=== PATIENT | male | born 1940 | race Hispanic/Latino ===

== ENCOUNTER → 2018-01-12 | Outpatient (CLI) | payer OTHER ==
[~2018-01-12] MED LIST: AMLO5TAB2 PO; ATOR10TA69 PO; CLIN150C10 PO; GLIP5TAB11 PO; IBUP-2076 PO; ISOVUE-370 50ML VIAL IV ONE; LEVO500T2 PO; LISI-613 PO; METF850T2 PO; METO5 PO; NITR0.4T50 SL; PANT40TA25 PO; TAMS0.4C32 PO; TYL3 PO
== END | disposition home or self-care (01) ==
LOC: OIH 07:47
PROVIDERS: ATTEND Internal Medicine Gastroenterology
DX: K83.8 Other specified diseases of biliary tract (principal); D50.9 Iron deficiency anemia, unspecified; Z85.038 Personal history of other malignant neoplasm of large intestine
CPT/HCPCS: 74178; Q9967

== ENCOUNTER 2018-01-19 07:49 | Inpatient (IN) | payer OTHER ==
[~2018-01-19] VITALS: Ht 172.7 cm; Wt 61.7 kg
[~2018-01-19 07:49] MED LIST changes: -ISOVUE-370 50ML VIAL IV ONE; -METO5 PO; -PANT40TA25 PO; -TYL3 PO
[2018-01-19 08:40] LABS: CREATININE 1.2 mg/dL (0.5-1.5); POTASSIUM 3.9 mmol/L (3.5-5.1)
[2018-01-19 08:48] LABS: INR 2.75 (0.85-1.15); PROTHROMBIN TIME 28.3 SEC (9.6-11.6)
[2018-01-19 08:52] LABS: ALBUMIN 1.8 g/dL (3.5-5.0); TOTAL PROTEIN, SERUM 7.2 g/dL (6.0-8.3)
[2018-01-19 08:55] LABS: MEAN CORPUSCULAR HEMOGLOBIN 31.6 pg (27.0-33.0); PLATELET COUNT (AUTO) 279 K/uL (130-400); RED BLOOD CELL COUNT(AUTO) 2.91 MIL/uL (4.50-6.20); RED CELL DISTRIBUTION WIDTH 16.2 % (11.0-15.5)
[2018-01-19 08:58] LABS: BILIRUBIN,TOTAL 20.7 mg/dL (0.2-1.0)
[2018-01-19 09:04] VITALS: BP 104/39
[2018-01-19] MEDS ORDERED: SODIUM CHLORIDE 0.9% 1000ML 1,000 ML IV ONE (09:24)
[2018-01-19 09:26] LABS: BASOPHILS % (MANUAL) 1 % (0-2); EOSINOPHILS % (MANUAL) 1 % (1-6); LYMPHOCYTES % (MANUAL) 12 % (22-44); MAN.DIFF COMMENT-IMPRESSION MANUAL DIFFERENTIAL; MONOCYTES % (MANUAL) 3 % (2-9); PLATELET MORPHOLOGY COMMENT ADEQUATE; SEGMENTED NEUTROPHILS % 83 % (40-70)
[2018-01-19] MEDS ORDERED: ACETAMINOPHEN 325 MG TAB PO PRN ×2 (11:00)
[2018-01-19] MEDS: PHYTONADIONE 10 MG/1 ML AMP SQ SCH (11:00)
[2018-01-19] MEDS ORDERED: NITROGLYCERIN 0.4 MG SL TAB SL PRN (11:00)
[2018-01-19] MEDS ORDERED: GUAIFENESIN-DM 200/20 MG 10 ML PO PRN (11:00)
[2018-01-19] MEDS ORDERED: HYDRALAZINE HCL 20 MG/ML VIAL IV PRN (11:00)
[2018-01-19] MEDS ORDERED: LACTULOSE 20 GM/30 ML UDCUP PO PRN (11:00)
[2018-01-19] MEDS ORDERED: ACETAMINOPHEN-CODEINE 300/30MG TAB PO PRN ×2 (11:00)
[2018-01-19 11:10] VITALS: BP 118/59
[2018-01-19] MEDS ORDERED: POTASSIUM CHLORIDE 10% ELIXIR 20 MEQ/15 ML UDCUP PO PRN (14:15)
[2018-01-19] MEDS ORDERED: LIDOCAINE HCL-MPF 1% 2ML VIAL IVP PRN (14:15)
[2018-01-19] MEDS ORDERED: POTASSIUM CHLORIDE 20MEQ/100ML 100 ML IV PRN (14:15)
[2018-01-19] MEDS ORDERED: POTASSIUM CHLORIDE 20 MEQ ERTAB PO PRN (14:15)
[2018-01-19 16:00] VITALS: BP 118/49
[2018-01-19] MEDS: INSULIN HUMULIN R 100 UNIT/ML 3ML SQ SCH ×2 (17:51→20:30)
[2018-01-19 19:59] VITALS: BP 129/56
[2018-01-19] MEDS: GLIPIZIDE 5 MG TABLET PO SCH (20:29)
[2018-01-19] MEDS: FAMOTIDINE/PF 20 MG/2 ML VIAL IV SCH (20:30)
[2018-01-19] MEDS: TAMSULOSIN HCL 0.4 MG CAP.ER.24H PO SCH (20:30)
[2018-01-20] VITALS (25 sets, daily range): BP systolic 86–152; BP diastolic 42–86
[2018-01-20 03:56] LABS: BILIRUBIN,URINE Large (NEGATIVE); COLOR,URINE Dark Yellow (YELLOW); GLUCOSE, URINE (UA) Negative (NEGATIVE); KETONES,URINE Negative (NEGATIVE); LEUKOCYTE ESTERASE ,URINE Trace (NEGATIVE); NITRATE,URINE Negative (NEGATIVE); OCCULT BLOOD,URINE Negative (NEGATIVE); PH,URINE 5.5 (5.0-8.0); PROTEIN,URINE POS 1+ (NEGATIVE)
[2018-01-20 04:04] LABS: APPEARANCE,URINE SLIGHTLY CLOUDY (CLEAR)
[2018-01-20 04:19] LABS: RBC,URINE None Seen /HPF (0-1)
[2018-01-20 04:20] LABS: BACTERIA,URINE Many /HPF (None Seen); SQUAMOUS EPITHELIAL CELL,UR Rare /LPF (0-2); WBC,URINE 0-1 /HPF (0-1)
[2018-01-20 04:48] LABS: HEMATOCRIT 22.2 % (42-54); MEAN CORPUSCULAR HEMOGLOBIN 32.7 pg (27.0-33.0); MEAN CORPUSCULAR HGB CONC 35.9 g/dL (32.0-36.0); MEAN CORPUSCULAR VOLUME 91.1 fL (79-99); PLATELET COUNT (AUTO) 243 K/uL (130-400); RED BLOOD CELL COUNT(AUTO) 2.43 MIL/uL (4.50-6.20); RED CELL DISTRIBUTION WIDTH 15.8 % (11.0-15.5); WHITE BLOOD COUNT (AUTO) 9.9 K/uL (4.8-10.8)
[2018-01-20 05:21] LABS: INR 1.11 (0.85-1.15); PARTIAL THROMBOPLASTIN TIME 36.2 SEC (26.3-35.5); PROTHROMBIN TIME 11.6 SEC (9.6-11.6)
[2018-01-20 06:28] LABS: ALBUMIN 1.6 g/dL (3.5-5.0); CREATININE 1.3 mg/dL (0.5-1.5); TOTAL PROTEIN, SERUM 6.3 g/dL (6.0-8.3)
[2018-01-20 06:30] LABS: BILIRUBIN,TOTAL 19.2 mg/dL (0.2-1.0)
[2018-01-20] MEDS: INSULIN HUMULIN R 100 UNIT/ML 3ML SQ SCH ×4 (06:52→21:00)
[2018-01-20] MEDS: AMLODIPINE BESYLATE 5 MG TAB PO SCH (09:00)
[2018-01-20] MEDS: LISINOPRIL 20 MG TABLET PO SCH (09:00)
[2018-01-20] MEDS: FAMOTIDINE/PF 20 MG/2 ML VIAL IV SCH ×2 (09:00→21:24)
[2018-01-20] MEDS: GLIPIZIDE 5 MG TABLET PO SCH ×2 (09:00→21:00)
[2018-01-20] MEDS: LEVOFLOXACIN 500 MG TABLET PO SCH (10:00)
[2018-01-20] MEDS: PHYTONADIONE 10 MG/1 ML AMP SQ SCH (10:00)
[2018-01-20] MEDS ORDERED: LIDOCAINE HCL 1% 20 ML VIAL ONE (12:10)
[2018-01-20] MEDS ORDERED: SUCCINYLCHOLINE CHLORIDE 20 MG/ML 10 ML VIAL ONE (12:10)
[2018-01-20] MEDS ORDERED: PROPOFOL 10 MG/ML 20ML VIAL IV ONE (12:10)
[2018-01-20] MEDS ORDERED: GLYCOPYRROLATE 0.2 MG/ML 5 ML VIAL ONE (12:24)
[2018-01-20] MEDS ORDERED: LEVOFLOXACIN 500 MG/D5W 100 ML 100 ML IV SCH (13:00)
[2018-01-20] MEDS: TAMSULOSIN HCL 0.4 MG CAP.ER.24H PO SCH (21:24)
[2018-01-21] VITALS (21 sets, daily range): BP systolic 84–151; BP diastolic 44–74
[2018-01-21] MEDS: INSULIN HUMULIN R 100 UNIT/ML 3ML SQ SCH ×4 (07:10→21:00)
[2018-01-21] MEDS: GLIPIZIDE 5 MG TABLET PO SCH ×2 (09:00→20:28)
[2018-01-21] MEDS: LISINOPRIL 20 MG TABLET PO SCH (09:00)
[2018-01-21] MEDS: LEVOFLOXACIN 500 MG TABLET PO SCH (09:00)
[2018-01-21] MEDS: AMLODIPINE BESYLATE 5 MG TAB PO SCH (09:00)
[2018-01-21] MEDS: PHYTONADIONE 10 MG/1 ML AMP SQ SCH (10:00)
[2018-01-21] MEDS: FAMOTIDINE/PF 20 MG/2 ML VIAL IV SCH ×2 (11:08→20:28)
[2018-01-21] MEDS ORDERED: ISOVUE-370 50ML VIAL IV ONE (12:30)
[2018-01-21] MEDS ORDERED: GLUCAGON 1MG KIT 1 MG ML ONE (12:51)
[2018-01-21] MEDS ORDERED: LACTULOSE 20 GM/30 ML UDCUP PO PRN (13:00)
[2018-01-21] MEDS ORDERED: EPHEDRINE SULFATE 50 MG/ML AMPULE ONE (13:02)
[2018-01-21] MEDS ORDERED: ALBUMIN (HUMAN) 25% 50 ML IV ONE (13:09)
[2018-01-21] MEDS ORDERED: SIMETHICONE 40 MG/0.6 ML ML ONE (13:16)
[2018-01-21] MEDS ORDERED: PHENYLEPHRINE HCL 10 MG/ML 1ML VIAL IV ONE (13:20)
[2018-01-21] MEDS ORDERED: ISOVUE-300 100 ML VIAL IV ONE (16:32)
[2018-01-21] MEDS ORDERED: LIDOCAINE HCL 1% 20 ML VIAL ONE (16:32)
[2018-01-21] MEDS ORDERED: MIDAZOLAM HCL 1 MG/ML 2ML VIAL ONE (16:41)
[2018-01-21] MEDS: TRAMADOL HCL 50 MG TABLET PO PRN (17:52)
[2018-01-21] MEDS: TAMSULOSIN HCL 0.4 MG CAP.ER.24H PO SCH (20:28)
[2018-01-21] MEDS: MORPHINE SULFATE 2 MG/ML 1ML SYG IV PRN (23:49)
[2018-01-22] VITALS: BP 120/58
[2018-01-22 04:00] VITALS: BP 105/56
[2018-01-22 05:43] LABS: ALBUMIN 1.6 g/dL (3.5-5.0); BASOPHILS % (AUTO) 0.8 % (0.0-5.0); CREATININE 1.2 mg/dL (0.5-1.5); HEMATOCRIT 22.5 % (42-54); LYMPHOCYTES % (AUTO) 31.8 % (21.0-51.0); MEAN CORPUSCULAR HGB CONC 32.9 g/dL (32.0-36.0); MEAN CORPUSCULAR VOLUME 94.1 fL (79-99); MONOCYTES % (AUTO) 2.5 % (3.0-13.0); NEUTROPHILS % (AUTO) 64.9 % (40.0-77.0); PLATELET COUNT (AUTO) 244 K/uL (130-400); POTASSIUM 3.8 mmol/L (3.5-5.1); RED BLOOD CELL COUNT(AUTO) 2.39 MIL/uL (4.50-6.20); RED CELL DISTRIBUTION WIDTH 15.9 % (11.0-15.5); WHITE BLOOD COUNT (AUTO) 23.1 K/uL (4.8-10.8)
[2018-01-22 06:03] LABS: TOTAL PROTEIN, SERUM 5.9 g/dL (6.0-8.3)
[2018-01-22 06:10] LABS: BILIRUBIN,TOTAL 19.3 mg/dL (0.2-1.0)
[2018-01-22] MEDS: INSULIN HUMULIN R 100 UNIT/ML 3ML SQ SCH ×4 (06:38→20:55)
[2018-01-22 07:45] VITALS: BP 108/52
[2018-01-22] MEDS: TRAMADOL HCL 50 MG TABLET PO PRN (09:19)
[2018-01-22] MEDS: LEVOFLOXACIN 500 MG TABLET PO SCH (09:19)
[2018-01-22] MEDS: GLIPIZIDE 5 MG TABLET PO SCH ×2 (09:20→20:55)
[2018-01-22] MEDS: AMLODIPINE BESYLATE 5 MG TAB PO SCH (09:20)
[2018-01-22] MEDS: LISINOPRIL 20 MG TABLET PO SCH (09:20)
[2018-01-22] MEDS: FAMOTIDINE/PF 20 MG/2 ML VIAL IV SCH ×2 (09:20→20:52)
[2018-01-22] MEDS: HYDROXYZINE HCL 25 MG TABLET PO PRN ×2 (09:20→18:49)
[2018-01-22] MEDS: PHYTONADIONE 10 MG/1 ML AMP SQ SCH (10:00)
[2018-01-22] MEDS ORDERED: LEVO500T2 PO (10:49)
[2018-01-22 12:00] VITALS: BP_SYST 114; BP_SYST 122; BP_DIAS 53; BP_DIAS 55
[2018-01-22 13:54] LABS: MEAN CORPUSCULAR HEMOGLOBIN 32.9 pg (27.0-33.0); MEAN CORPUSCULAR HGB CONC 34.5 g/dL (32.0-36.0); MEAN CORPUSCULAR VOLUME 95.6 fL (79-99); PLATELET COUNT (AUTO) 230 K/uL (130-400); RED BLOOD CELL COUNT(AUTO) 2.07 MIL/uL (4.50-6.20); RED CELL DISTRIBUTION WIDTH 15.9 % (11.0-15.5); WHITE BLOOD COUNT (AUTO) 20.9 K/uL (4.8-10.8)
[2018-01-22 14:21] LABS: HEMATOCRIT 19.8 % (42-54)
[2018-01-22 14:25] LABS: BAND NEUTROPHILS % (MANUAL) 2 % (0-2); LYMPHOCYTES % (MANUAL) 3 % (22-44); MONOCYTES % (MANUAL) 1 % (2-9); SEGMENTED NEUTROPHILS % 94 % (40-70)
[2018-01-22 14:27] LABS: PLATELET MORPHOLOGY COMMENT ADEQUATE
[2018-01-22] MEDS: MORPHINE SULFATE 4 MG/1ML SYG IV PRN (18:49)
[2018-01-22 20:00] VITALS: BP 115/52
[2018-01-22] MEDS: TAMSULOSIN HCL 0.4 MG CAP.ER.24H PO SCH (20:51)
[2018-01-22] MEDS ORDERED: MORPHINE SULFATE 15 MG TABLET.SA PO SCH (23:30)
[2018-01-23] VITALS: BP 122/66
[2018-01-23] MEDS: MORPHINE SULFATE 4 MG/1ML SYG IV PRN (00:31)
[2018-01-23 04:00] VITALS: BP 122/61
[2018-01-23 05:30] LABS: CREATININE 1.2 mg/dL (0.5-1.5); POTASSIUM 3.8 mmol/L (3.5-5.1)
[2018-01-23 05:34] LABS: HEMATOCRIT 29.5 % (42-54); MEAN CORPUSCULAR HEMOGLOBIN 31.2 pg (27.0-33.0); MEAN CORPUSCULAR VOLUME 89.3 fL (79-99); PLATELET COUNT (AUTO) 222 K/uL (130-400); RED CELL DISTRIBUTION WIDTH 17.7 % (11.0-15.5); WHITE BLOOD COUNT (AUTO) 16.2 K/uL (4.8-10.8)
[2018-01-23] MEDS: MORPHINE SULFATE 2 MG/ML 1ML SYG IV PRN ×2 (06:31→16:35)
[2018-01-23] MEDS: INSULIN HUMULIN R 100 UNIT/ML 3ML SQ SCH ×4 (07:30→20:53)
[2018-01-23 08:00] VITALS: BP 101/54
[2018-01-23] MEDS: PHYTONADIONE 10 MG/1 ML AMP SQ SCH (08:01)
[2018-01-23] MEDS: GLIPIZIDE 5 MG TABLET PO SCH ×2 (09:00→20:52)
[2018-01-23] MEDS: LISINOPRIL 20 MG TABLET PO SCH (09:00)
[2018-01-23] MEDS: AMLODIPINE BESYLATE 5 MG TAB PO SCH (09:00)
[2018-01-23] MEDS: FAMOTIDINE/PF 20 MG/2 ML VIAL IV SCH ×2 (11:20→20:52)
[2018-01-23 12:00] VITALS: BP 103/56
[2018-01-23 12:38] VITALS: BP 116/60
[2018-01-23] MEDS: LEVOFLOXACIN 500 MG TABLET PO SCH (16:34)
[2018-01-23 20:00] VITALS: BP 104/58
[2018-01-23] MEDS ORDERED: PHARMACY COMMUNICATION MISC SCH (20:45)
[2018-01-23] MEDS ORDERED: GLUCAGON 1MG KIT 1 MG ML IM PRN (20:45)
[2018-01-23] MEDS ORDERED: DEXTROSE 50%-WATER 50 ML DISP.SYRIN IV PRN (20:45)
[2018-01-23] MEDS ORDERED: DEXTROSE 5 %-0.45 % NACL 1,000 ML IV SCH (20:45)
[2018-01-23] MEDS: TAMSULOSIN HCL 0.4 MG CAP.ER.24H PO SCH (20:52)
[2018-01-24] VITALS: BP 111/57
[2018-01-24 04:00] VITALS: BP 113/63
[2018-01-24] MEDS: INSULIN HUMULIN R 100 UNIT/ML 3ML SQ SCH ×4 (06:49→21:00)
[2018-01-24] MEDS: MORPHINE SULFATE 2 MG/ML 1ML SYG IV PRN ×2 (07:43→13:24)
[2018-01-24 08:00] VITALS: BP 121/62
[2018-01-24] MEDS: AMLODIPINE BESYLATE 5 MG TAB PO SCH (09:00)
[2018-01-24] MEDS: GLIPIZIDE 5 MG TABLET PO SCH ×2 (09:00→21:00)
[2018-01-24] MEDS: LISINOPRIL 20 MG TABLET PO SCH (09:00)
[2018-01-24] MEDS: FAMOTIDINE/PF 20 MG/2 ML VIAL IV SCH ×2 (09:14→21:54)
[2018-01-24 12:00] VITALS: BP 114/58
[2018-01-24] MEDS: LEVOFLOXACIN 500 MG/D5W 100 ML 100 ML IV SCH (15:30)
[2018-01-24] MEDS: SODIUM CHLORIDE 0.9% 1000ML 1,000 ML IV SCH (15:30)
[2018-01-24 16:00] VITALS: BP 108/69
[2018-01-24 19:00] VITALS: BP 140/74
[2018-01-24] MEDS: TAMSULOSIN HCL 0.4 MG CAP.ER.24H PO SCH (21:54)
[2018-01-25] VITALS (20 sets, daily range): BP systolic 95–136; BP diastolic 57–75
[2018-01-25] MEDS: MORPHINE SULFATE 2 MG/ML 1ML SYG IV PRN (04:30)
[2018-01-25] MEDS ORDERED: ONDANSETRON HCL MDV 20ML 2 MG/ML VIAL ONE ×4 (04:39→22:54)
[2018-01-25] MEDS: ONDANSETRON HCL 4 MG/2 ML VIAL IV PRN ×3 (04:47→23:05)
[2018-01-25 05:49] LABS: MEAN CORPUSCULAR HGB CONC 34.6 g/dL (32.0-36.0); MEAN CORPUSCULAR VOLUME 89.5 fL (79-99); PLATELET COUNT (AUTO) 208 K/uL (130-400); RED BLOOD CELL COUNT(AUTO) 3.13 MIL/uL (4.50-6.20); RED CELL DISTRIBUTION WIDTH 17.4 % (11.0-15.5); WHITE BLOOD COUNT (AUTO) 17.3 K/uL (4.8-10.8)
[2018-01-25 05:57] LABS: CREATININE 1.4 mg/dL (0.5-1.5); POTASSIUM 3.6 mmol/L (3.5-5.1)
[2018-01-25] MEDS: INSULIN HUMULIN R 100 UNIT/ML 3ML SQ SCH ×4 (06:29→21:00)
[2018-01-25] MEDS: LISINOPRIL 20 MG TABLET PO SCH (09:00)
[2018-01-25] MEDS: GLIPIZIDE 5 MG TABLET PO SCH ×2 (09:00→21:00)
[2018-01-25] MEDS: AMLODIPINE BESYLATE 5 MG TAB PO SCH (09:00)
[2018-01-25] MEDS: FAMOTIDINE/PF 20 MG/2 ML VIAL IV SCH ×2 (09:34→22:16)
[2018-01-25] MEDS: SODIUM CHLORIDE 0.9% 1000ML 1,000 ML IV SCH (10:15)
[2018-01-25] MEDS: MORPHINE SULFATE 4 MG/1ML SYG IV PRN (12:37)
[2018-01-25] MEDS: LEVOFLOXACIN 500 MG/D5W 100 ML 100 ML IV SCH (12:42)
[2018-01-25] MEDS ORDERED: ISOVUE-370 50ML VIAL IV ONE (17:39)
[2018-01-25] MEDS ORDERED: KETAMINE HCL 100 MG/ML 5ML VIAL IJ ONE (18:18)
[2018-01-25] MEDS ORDERED: PROPOFOL 10 MG/ML 20ML VIAL IV ONE (18:30)
[2018-01-25] MEDS: TAMSULOSIN HCL 0.4 MG CAP.ER.24H PO SCH (21:00)
[2018-01-25] MEDS ORDERED: ONDANSETRON HCL 4 MG/2 ML VIAL IV PRN (23:15)
[2018-01-26] VITALS (14 sets, daily range): BP systolic 98–121; BP diastolic 50–65
[2018-01-26] MEDS ORDERED: PHARMACY COMMUNICATION MISC SCH (04:30)
[2018-01-26 05:38] LABS: HEMATOCRIT 24.2 % (42-54); MEAN CORPUSCULAR HEMOGLOBIN 32.4 pg (27.0-33.0); MEAN CORPUSCULAR HGB CONC 35.7 g/dL (32.0-36.0); MEAN CORPUSCULAR VOLUME 90.9 fL (79-99); PLATELET COUNT (AUTO) 184 K/uL (130-400); RED BLOOD CELL COUNT(AUTO) 2.66 MIL/uL (4.50-6.20); RED CELL DISTRIBUTION WIDTH 17.8 % (11.0-15.5); WHITE BLOOD COUNT (AUTO) 14.6 K/uL (4.8-10.8)
[2018-01-26] MEDS: INSULIN HUMULIN R 100 UNIT/ML 3ML SQ SCH ×4 (05:46→21:00)
[2018-01-26 06:02] LABS: CREATININE 1.6 mg/dL (0.5-1.5); POTASSIUM 3.5 mmol/L (3.5-5.1)
[2018-01-26] MEDS: SODIUM CHLORIDE 0.9% 1000ML 1,000 ML IV SCH ×2 (06:04→08:54)
[2018-01-26] MEDS ORDERED: ONDANSETRON HCL MDV 20ML 2 MG/ML VIAL ONE (08:40)
[2018-01-26] MEDS: FAMOTIDINE/PF 20 MG/2 ML VIAL IV SCH ×2 (08:47→21:31)
[2018-01-26] MEDS: MORPHINE SULFATE 2 MG/ML 1ML SYG IV PRN (08:49)
[2018-01-26] MEDS: GLIPIZIDE 5 MG TABLET PO SCH ×2 (08:58→21:00)
[2018-01-26] MEDS: LISINOPRIL 20 MG TABLET PO SCH (08:58)
[2018-01-26] MEDS: AMLODIPINE BESYLATE 5 MG TAB PO SCH (08:58)
[2018-01-26] MEDS ORDERED: ONDANSETRON HCL MDV 20ML 2 MG/ML VIAL IVP PRN (09:00)
[2018-01-26] MEDS ORDERED: IOPAMIDOL-370 75 ML VIAL IV ONE (12:30)
[2018-01-26] MEDS ORDERED: ISOVUE-300 100 ML VIAL IV ONE (13:47)
[2018-01-26] MEDS ORDERED: LIDOCAINE HCL 1% MDV 50ML VIAL ONE (13:48)
[2018-01-26] MEDS ORDERED: KETAMINE HCL 100 MG/ML 5ML VIAL IJ ONE (14:05)
[2018-01-26] MEDS ORDERED: PROPOFOL 10 MG/ML 20ML VIAL IV ONE (14:05)
[2018-01-26] MEDS ORDERED: MIDAZOLAM HCL 1 MG/ML 2ML VIAL ONE (14:05)
[2018-01-26] MEDS: LEVOFLOXACIN 500 MG/D5W 100 ML 100 ML IV SCH (16:29)
[2018-01-26] MEDS: TRAMADOL HCL 50 MG TABLET PO PRN (16:36)
[2018-01-26] MEDS: TAMSULOSIN HCL 0.4 MG CAP.ER.24H PO SCH (21:31)
[2018-01-27] MEDS: TRAMADOL HCL 50 MG TABLET PO PRN ×2 (02:08→09:29)
[2018-01-27 03:30] VITALS: BP 100/63
[2018-01-27] MEDS: INSULIN HUMULIN R 100 UNIT/ML 3ML SQ SCH ×4 (07:30→21:00)
[2018-01-27 08:00] VITALS: BP 98/54
[2018-01-27] MEDS: GLIPIZIDE 5 MG TABLET PO SCH ×2 (09:00→21:00)
[2018-01-27] MEDS: LISINOPRIL 20 MG TABLET PO SCH (09:00)
[2018-01-27] MEDS: AMLODIPINE BESYLATE 5 MG TAB PO SCH (09:00)
[2018-01-27] MEDS: FAMOTIDINE/PF 20 MG/2 ML VIAL IV SCH ×2 (09:28→21:42)
[2018-01-27 12:00] VITALS: BP 116/51
[2018-01-27 16:00] VITALS: BP 92/49
[2018-01-27] MEDS: LEVOFLOXACIN 500 MG/D5W 100 ML 100 ML IV SCH (16:47)
[2018-01-27 20:00] VITALS: BP 96/51
[2018-01-27] MEDS: TAMSULOSIN HCL 0.4 MG CAP.ER.24H PO SCH (21:42)
[2018-01-27] MEDS: SODIUM CHLORIDE 0.9% 1000ML 1,000 ML IV SCH (22:51)
[2018-01-27 23:10] VITALS: BP 108/56
[2018-01-28 03:20] VITALS: BP 100/51
[2018-01-28] MEDS: INSULIN HUMULIN R 100 UNIT/ML 3ML SQ SCH ×4 (06:54→21:00)
[2018-01-28 07:00] VITALS: BP 111/43
[2018-01-28] MEDS: LISINOPRIL 20 MG TABLET PO SCH ×2 (09:00→09:07)
[2018-01-28] MEDS: AMLODIPINE BESYLATE 5 MG TAB PO SCH (09:00)
[2018-01-28] MEDS: GLIPIZIDE 5 MG TABLET PO SCH ×2 (09:07→21:00)
[2018-01-28] MEDS: FAMOTIDINE/PF 20 MG/2 ML VIAL IV SCH ×2 (09:07→20:44)
[2018-01-28] MEDS: TRAMADOL HCL 50 MG TABLET PO PRN (10:57)
[2018-01-28 11:00] VITALS: BP 86/52
[2018-01-28] MEDS: LEVOFLOXACIN 500 MG/D5W 100 ML 100 ML IV SCH (13:12)
[2018-01-28] MEDS: MAG HYDROX/AL HYDROX/SIMETH ES 30 ML SUSP UDCUP PO PRN (13:12)
[2018-01-28] MEDS: SODIUM CHLORIDE 0.9% 1000ML 1,000 ML IV SCH ×2 (14:56→20:30)
[2018-01-28 16:00] VITALS: BP 106/52
[2018-01-28 19:30] VITALS: BP 94/49
[2018-01-28] MEDS ORDERED: SODIUM CHLORIDE 0.9% 1000ML 1,000 ML IV ONE (20:31)
[2018-01-28] MEDS: TAMSULOSIN HCL 0.4 MG CAP.ER.24H PO SCH (21:00)
[2018-01-29 00:12] VITALS: BP 101/53
[2018-01-29 03:50] VITALS: BP 95/46
[2018-01-29] MEDS: INSULIN HUMULIN R 100 UNIT/ML 3ML SQ SCH ×4 (06:15→20:56)
[2018-01-29 07:00] VITALS: BP 102/53
[2018-01-29] MEDS: FAMOTIDINE/PF 20 MG/2 ML VIAL IV SCH ×2 (08:33→20:44)
[2018-01-29] MEDS: GLIPIZIDE 5 MG TABLET PO SCH ×2 (08:33→20:44)
[2018-01-29] MEDS: LISINOPRIL 20 MG TABLET PO SCH (08:34)
[2018-01-29] MEDS: AMLODIPINE BESYLATE 5 MG TAB PO SCH (08:34)
[2018-01-29 11:00] VITALS: BP 110/41
[2018-01-29] MEDS: LEVOFLOXACIN 500 MG/D5W 100 ML 100 ML IV SCH (14:01)
[2018-01-29] MEDS: SODIUM CHLORIDE 0.9% 1000ML 1,000 ML IV SCH (15:34)
[2018-01-29 16:00] VITALS: BP 101/45
[2018-01-29 19:00] VITALS: BP 101/51
[2018-01-29] MEDS: TAMSULOSIN HCL 0.4 MG CAP.ER.24H PO SCH (20:44)
[2018-01-29] MEDS: TRAMADOL HCL 50 MG TABLET PO PRN (20:56)
[2018-01-30] VITALS: BP 108/61
[2018-01-30 04:00] VITALS: BP 106/52
[2018-01-30] MEDS: MAG HYDROX/AL HYDROX/SIMETH ES 30 ML SUSP UDCUP PO PRN (05:17)
[2018-01-30] MEDS: INSULIN HUMULIN R 100 UNIT/ML 3ML SQ SCH ×3 (06:59→16:52)
[2018-01-30 07:00] VITALS: BP 112/53
[2018-01-30] MEDS: AMLODIPINE BESYLATE 5 MG TAB PO SCH (09:11)
[2018-01-30] MEDS: LISINOPRIL 20 MG TABLET PO SCH (09:11)
[2018-01-30] MEDS: GLIPIZIDE 5 MG TABLET PO SCH (09:11)
[2018-01-30] MEDS: FAMOTIDINE/PF 20 MG/2 ML VIAL IV SCH (10:07)
[2018-01-30] MEDS: TRAMADOL HCL 50 MG TABLET PO PRN (10:09)
[2018-01-30 11:00] VITALS: BP 105/46
[2018-01-30] MEDS: SODIUM CHLORIDE 0.9% 1000ML 1,000 ML IV SCH (11:58)
[2018-01-30] MEDS: LEVOFLOXACIN 500 MG/D5W 100 ML 100 ML IV SCH (13:32)
[2018-01-30 16:00] VITALS: BP 102/48
== END 2018-01-30 17:30 | DRG 438 ==
LOC: SUH 07:49 → DAH 07:49 → SUH 07:50 → DAHIP 07:50 → OBSVTOIN 07:50 → 4BH 14:42 → 4CH 01-27 21:00
PROVIDERS: ADMIT Internal Medicine; ATTEND Internal Medicine
PROC: 0F9980Z Drainage of Common Bile Duct with Drainage Device, Via Natural or Artificial Opening Endoscopic (ICD-10-PCS; principal; 2018-01-26)
PROC: BF111ZZ Fluoroscopy of Biliary and Pancreatic Ducts using Low Osmolar Contrast (ICD-10-PCS; 2018-01-26)
PROC: 0F798DZ Dilation of Common Bile Duct with Intraluminal Device, Via Natural or Artificial Opening Endoscopic (ICD-10-PCS; 2018-01-26)
PROC: 30233K1 Transfusion of Nonautologous Frozen Plasma into Peripheral Vein, Percutaneous Approach (ICD-10-PCS; 2018-01-26)
PROC: 30233N1 Transfusion of Nonautologous Red Blood Cells into Peripheral Vein, Percutaneous Approach (ICD-10-PCS; 2018-01-26)
DX: K86.89 Other specified diseases of pancreas (principal); K83.1 Obstruction of bile duct; D68.9 Coagulation defect, unspecified; E11.51 Type 2 diabetes mellitus with diabetic peripheral angiopathy without gangrene; E11.65 Type 2 diabetes mellitus with hyperglycemia; I95.81 Postprocedural hypotension; Z94.0 Kidney transplant status; L03.90 Cellulitis, unspecified; D64.9 Anemia, unspecified; E78.5 Hyperlipidemia, unspecified; I10 Essential (primary) hypertension; I25.10 Atherosclerotic heart disease of native coronary artery without angina pectoris; L29.9 Pruritus, unspecified; R62.7 Adult failure to thrive; Z79.84 Long term (current) use of oral hypoglycemic drugs; Z79.899 Other long term (current) drug therapy; Z95.1 Presence of aortocoronary bypass graft; Z93.3 Colostomy status; Z85.07 Personal history of malignant neoplasm of pancreas; Z85.048 Personal history of other malignant neoplasm of rectum, rectosigmoid junction, and anus; Z88.0 Allergy status to penicillin; Z89.432 Acquired absence of left foot; Z83.3 Family history of diabetes mellitus
CPT/HCPCS: 36415; 36430; 43232; 47532; 47534; 49083; 74018; 74177; 74330; 75989; 76700; 76705; 80048; 80053; 81001; 82150; 82378; 82948; 84132; 85025; 85027; 85610; 85730; 86850; 86900; 86901; 86922; 86927; 88108; 88173; 93005; 97039; 99152; 99153; A6250; C1729; C1769; C1894; J0330; J1610; J1815; J1956; J2250; J2270; J2370; J2704; J3430; J3480; J3490; J7030; J7042; J7070; P9016; P9017; P9047; Q9967

== ENCOUNTER 2018-02-02 16:49 | Inpatient (IN) | payer OTHER ==
[~2018-02-02] VITALS: Ht 172.7 cm; Wt 61.7 kg
[~2018-02-02 16:49] MED LIST changes: -CLIN150C10 PO
[2018-02-02] MEDS ORDERED: MEROPENEM 1 GM VIAL ONE (18:09)
[2018-02-02] MEDS ORDERED: SODIUM CHLORIDE 0.9% 1000ML 1,000 ML IV ONE ×2 (18:09→22:33)
[2018-02-02] MEDS ORDERED: SODIUM CHLORIDE 0.9% 50 ML IV ONE (18:09)
[2018-02-02 18:28] LABS: BASOPHILS % (AUTO) 0.7 % (0.0-5.0); EOSINOPHILS % (AUTO) 0.1 % (0.0-8.0); HEMATOCRIT 29.3 % (42-54); LYMPHOCYTES % (AUTO) 2.1 % (21.0-51.0); MEAN CORPUSCULAR HEMOGLOBIN 31.2 pg (27.0-33.0); MEAN CORPUSCULAR VOLUME 94.5 fL (79-99); MONOCYTES % (AUTO) 4.3 % (3.0-13.0); NEUTROPHILS % (AUTO) 92.8 % (40.0-77.0); PLATELET COUNT (AUTO) 109 K/uL (130-400); WHITE BLOOD COUNT (AUTO) 16.9 K/uL (4.8-10.8)
[2018-02-02 18:40] LABS: INR 1.03 (0.85-1.15); PARTIAL THROMBOPLASTIN TIME 36.6 SEC (26.3-35.5); PROTHROMBIN TIME 10.8 SEC (9.6-11.6)
[2018-02-02 18:41] LABS: CARBON DIOXIDE 17 mmol/L (21-32); CHLORIDE 103 mmol/L (101-111); CREATININE 2.3 mg/dL (0.5-1.5); GLOMERULAR FILTR. RATE CALC 30 mL/min (>60); GLUCOSE,RANDOM 205 mg/dL (70-105); POTASSIUM 3.8 mmol/L (3.5-5.1); SODIUM SERUM 135 mmol/L (136-145); UREA NITROGEN, BLOOD 60 mg/dL (7-18)
[2018-02-02 19:09] LABS: ALANINE AMINOTRANSFERASE 38 U/L (12-78); ALBUMIN 1.4 g/dL (3.5-5.0); ASPARTATE AMINOTRANSFERASE 83 U/L (10-37); BILIRUBIN,TOTAL 7.5 mg/dL (0.2-1.0); CREATINE KINASE MB 2.2 ng/mL (0.5-3.6); CREATINE KINASE, TOTAL 149 U/L (21-232); MYOGLOBIN 1157 ng/mL (10-92); TROPONIN I < 0.04 ng/mL (0.00-0.06)
[2018-02-02 20:13] LABS: APPEARANCE,URINE CLOUDY (CLEAR); BILIRUBIN,URINE MODERATE (NEGATIVE); GLUCOSE, URINE (UA) NEGATIVE (NEGATIVE); KETONES,URINE NEGATIVE (NEGATIVE); LEUKOCYTE ESTERASE ,URINE SMALL (NEGATIVE); NITRATE,URINE POSITIVE (NEGATIVE); OCCULT BLOOD,URINE TRACE-LYSED (NEGATIVE); PH,URINE 5.5 (5.0-8.0); PROTEIN,URINE TRACE (NEGATIVE); UROBILINOGEN,URINE 0.2 mg/dL (0.2-1.0)
[2018-02-02 20:14] LABS: COLOR,URINE DARK YELLOW (YELLOW)
[2018-02-02 20:22] LABS: WBC,URINE 26-50 /HPF (0-1)
[2018-02-02 20:23] LABS: BACTERIA,URINE Many /HPF (None Seen); RBC,URINE 0-1 /HPF (0-1); SQUAMOUS EPITHELIAL CELL,UR 0-2 /HPF (0-2)
[2018-02-02] MEDS ORDERED: DEXTROSE 50%-WATER 50 ML DISP.SYRIN IV PRN (23:15)
[2018-02-02] MEDS ORDERED: ONDANSETRON HCL 4 MG/2 ML VIAL IV PRN (23:15)
[2018-02-02] MEDS: SODIUM CHLORIDE 0.9% 1000ML 1,000 ML IV SCH (23:15)
[2018-02-02] MEDS ORDERED: GLUCAGON 1MG KIT 1 MG ML IM PRN (23:15)
[2018-02-02] MEDS ORDERED: VANCOMYCIN 1GM+NS 250ML 250 ML IV SCH (23:15)
[2018-02-02] MEDS ORDERED: MEROPENEM 500MG+NS 50ML 50 ML IV SCH (23:15)
[2018-02-02] MEDS: LEVOFLOXACIN 500 MG/D5W 100 ML 100 ML IV SCH (23:15)
[2018-02-02] MEDS ORDERED: ALBUMIN (HUMAN) 25% 100 ML IV ONE ×2 (23:57→23:58)
[2018-02-03] MEDS ORDERED: VANCOMYCIN PROTOCOL PER PHARMACY IV SCH (01:00)
[2018-02-03] MEDS: IPRATROPIUM/ALBUTEROL SULFATE 3 ML SOLUTION IH SCH ×5 (01:09→23:28)
[2018-02-03] MEDS ORDERED: VANCOMYCIN 1GM+NS 250ML 250 ML IV ONE (02:38)
[2018-02-03] MEDS ORDERED: SODIUM CHLORIDE 0.9% 1000ML 1,000 ML IV ONE (02:38)
[2018-02-03] MEDS ORDERED: MEROPENEM 500 MG VIAL ONE ×2 (02:38→11:13)
[2018-02-03 06:23] LABS: HEMATOCRIT 24.2 % (42-54); MEAN CORPUSCULAR HEMOGLOBIN 32.6 pg (27.0-33.0); MEAN CORPUSCULAR HGB CONC 35.1 g/dL (32.0-36.0); MEAN CORPUSCULAR VOLUME 92.8 fL (79-99); PLATELET COUNT (AUTO) 95 K/uL (130-400); RED BLOOD CELL COUNT(AUTO) 2.61 MIL/uL (4.50-6.20); RED CELL DISTRIBUTION WIDTH 17.2 % (11.0-15.5); WHITE BLOOD COUNT (AUTO) 15.3 K/uL (4.8-10.8)
[2018-02-03] MEDS ORDERED: IPRATROPIUM/ALBUTEROL SULFATE 3 ML SOLUTION IH ONE (06:25)
[2018-02-03] MEDS ORDERED: LEVOFLOXACIN 500 MG/D5W 100 ML 100 ML ONE (06:38)
[2018-02-03 06:44] LABS: ALBUMIN 1.1 g/dL (3.5-5.0); BILIRUBIN,TOTAL 5.6 mg/dL (0.2-1.0); CREATININE 1.7 mg/dL (0.5-1.5); POTASSIUM 3.2 mmol/L (3.5-5.1); TOTAL PROTEIN, SERUM 5.4 g/dL (6.0-8.3)
[2018-02-03] MEDS: INSULIN HUMULIN R 100 UNIT/ML 3ML SQ SCH ×4 (07:30→21:00)
[2018-02-03] MEDS ORDERED: ALBUMIN (HUMAN) 25% 100 ML IV ONE (08:34)
[2018-02-03] MEDS: MEROPENEM 500 MG VIAL IVP SCH ×2 (09:00→17:59)
[2018-02-03] MEDS ORDERED: SODIUM CHLORIDE 0.9% 100 ML IV ONE (11:13)
[2018-02-03 15:36] VITALS: BP 105/44
[2018-02-03 16:00] VITALS: BP 142/82
[2018-02-03] MEDS: METOCLOPRAMIDE 5 MG TABLET PO SCH (17:58)
[2018-02-03] MEDS: PANTOPRAZOLE SODIUM 40 MG TABLET.DR PO SCH (17:58)
[2018-02-03] MEDS: SODIUM CHLORIDE 0.9% 1000ML 1,000 ML IV SCH (17:59)
[2018-02-03 20:00] VITALS: BP 120/46
[2018-02-03 20:12] LABS: APPEARANCE BODY FLUID BLOODY (CLEAR); COLOR,BODY FLUID RED (LT YELLOW); SPECIMENTYPE,BODY FLUID PLEURAL; TOTAL VOLUME,BODY FLUID 1200 mL
[2018-02-03] MEDS: ALBUMIN (HUMAN) 25% 100 ML IV SCH (20:14)
[2018-02-03 20:16] LABS: BODY FLUID WBC 881 /cu. mm.
[2018-02-03 20:18] LABS: BODY FLUID RBC 37675 /cu. mm.
[2018-02-03 20:23] LABS: BF LYMPHOCYTE 12 %
[2018-02-03] MEDS: VANCOMYCIN 1GM+NS 250ML 250 ML IV SCH (22:33)
[2018-02-04] VITALS: BP 122/48
[2018-02-04] MEDS: MEROPENEM 500 MG VIAL IVP SCH ×3 (01:12→17:16)
[2018-02-04] MEDS: ALBUMIN (HUMAN) 25% 100 ML IV SCH (03:12)
[2018-02-04 04:00] VITALS: BP 115/46
[2018-02-04 04:59] LABS: HEMATOCRIT 22.6 % (42-54); MEAN CORPUSCULAR HEMOGLOBIN 31.1 pg (27.0-33.0); MEAN CORPUSCULAR VOLUME 94.1 fL (79-99); PLATELET COUNT (AUTO) 102 K/uL (130-400); RED CELL DISTRIBUTION WIDTH 17.6 % (11.0-15.5); WHITE BLOOD COUNT (AUTO) 11.6 K/uL (4.8-10.8)
[2018-02-04 05:19] LABS: ALBUMIN 2.4 g/dL (3.5-5.0); BILIRUBIN,TOTAL 5.4 mg/dL (0.2-1.0); CREATININE 1.5 mg/dL (0.5-1.5); MAGNESIUM 2.1 mg/dL (1.80-2.40); PHOSPHORUS 3.6 mg/dL (2.5-4.9); POTASSIUM 3.5 mmol/L (3.5-5.1); TOTAL PROTEIN, SERUM 5.8 g/dL (6.0-8.3)
[2018-02-04] MEDS: LEVOFLOXACIN 500 MG/D5W 100 ML 100 ML IV SCH (05:56)
[2018-02-04] MEDS: INSULIN HUMULIN R 100 UNIT/ML 3ML SQ SCH ×4 (06:37→21:00)
[2018-02-04] MEDS: IPRATROPIUM/ALBUTEROL SULFATE 3 ML SOLUTION IH SCH (06:56)
[2018-02-04 08:00] VITALS: BP 117/46
[2018-02-04] MEDS: METOCLOPRAMIDE 5 MG TABLET PO SCH ×3 (08:19→17:16)
[2018-02-04] MEDS: PANTOPRAZOLE SODIUM 40 MG TABLET.DR PO SCH (08:19)
[2018-02-04] MEDS: SODIUM CHLORIDE 0.9% 1000ML 1,000 ML IV SCH (08:25)
[2018-02-04] MEDS: TRAMADOL HCL 50 MG TABLET PO PRN (10:17)
[2018-02-04] MEDS: IPRATROPIUM/ALBUTEROL SULFATE 3 ML SOLUTION IH PRN ×2 (11:40→18:42)
[2018-02-04 12:00] VITALS: BP 114/47
[2018-02-04 16:00] VITALS: BP 113/48
[2018-02-04 20:00] VITALS: BP 112/50
[2018-02-04] MEDS: VANCOMYCIN 1GM+NS 250ML 250 ML IV SCH (22:23)
[2018-02-05] VITALS (7 sets, daily range): BP systolic 120–152; BP diastolic 54–72
[2018-02-05] MEDS: MEROPENEM 500 MG VIAL IVP SCH ×3 (01:13→17:29)
[2018-02-05 04:58] LABS: HEMATOCRIT 23.8 % (42-54); MEAN CORPUSCULAR HGB CONC 35.3 g/dL (32.0-36.0); MEAN CORPUSCULAR VOLUME 93.4 fL (79-99); NUCLEATED RED BLOOD CELLS 0.2 % (0.0-0.19); PLATELET COUNT (AUTO) 109 K/uL (130-400); RED BLOOD CELL COUNT(AUTO) 2.55 MIL/uL (4.50-6.20); WHITE BLOOD COUNT (AUTO) 10.6 K/uL (4.8-10.8)
[2018-02-05 05:17] LABS: CREATININE 1.2 mg/dL (0.5-1.5); POTASSIUM 3.1 mmol/L (3.5-5.1)
[2018-02-05] MEDS: INSULIN HUMULIN R 100 UNIT/ML 3ML SQ SCH ×4 (06:21→20:56)
[2018-02-05] MEDS: LEVOFLOXACIN 500 MG/D5W 100 ML 100 ML IV SCH (06:21)
[2018-02-05] MEDS: METOCLOPRAMIDE 5 MG TABLET PO SCH ×3 (07:30→17:29)
[2018-02-05] MEDS: PANTOPRAZOLE SODIUM 40 MG TABLET.DR PO SCH (09:56)
[2018-02-05] MEDS ORDERED: POTASSIUM CHLORIDE 10% ELIXIR 20 MEQ/15 ML UDCUP PO PRN (16:45)
[2018-02-05] MEDS ORDERED: LIDOCAINE HCL-MPF 1% 2ML VIAL IVP PRN (16:45)
[2018-02-05] MEDS ORDERED: POTASSIUM CHLORIDE 20MEQ/100ML 100 ML IV PRN (16:45)
[2018-02-05] MEDS: POTASSIUM CHLORIDE 20 MEQ ERTAB PO PRN ×2 (17:29→19:54)
[2018-02-05] MEDS: VANCOMYCIN 1GM+NS 250ML 250 ML IV SCH (20:56)
[2018-02-06] MEDS: MEROPENEM 500 MG VIAL IVP SCH ×3 (01:11→21:02)
[2018-02-06 03:59] VITALS: BP 138/75
[2018-02-06 05:59] LABS: HEMATOCRIT 24.8 % (42-54); MEAN CORPUSCULAR HEMOGLOBIN 32.1 pg (27.0-33.0); MEAN CORPUSCULAR HGB CONC 34.3 g/dL (32.0-36.0); MEAN CORPUSCULAR VOLUME 93.6 fL (79-99); PLATELET COUNT (AUTO) 113 K/uL (130-400); RED BLOOD CELL COUNT(AUTO) 2.65 MIL/uL (4.50-6.20); RED CELL DISTRIBUTION WIDTH 18.3 % (11.0-15.5); WHITE BLOOD COUNT (AUTO) 9.7 K/uL (4.8-10.8)
[2018-02-06 06:08] LABS: CREATININE 1.2 mg/dL (0.5-1.5); POTASSIUM 3.5 mmol/L (3.5-5.1)
[2018-02-06 07:31] VITALS: BP 128/59
[2018-02-06] MEDS: LEVOFLOXACIN 500 MG/D5W 100 ML 100 ML IV SCH (08:28)
[2018-02-06] MEDS: PANTOPRAZOLE SODIUM 40 MG TABLET.DR PO SCH (10:14)
[2018-02-06] MEDS: TRAMADOL HCL 50 MG TABLET PO PRN (10:15)
[2018-02-06 11:00] VITALS: BP 131/60
[2018-02-06] MEDS: METOCLOPRAMIDE 5 MG TABLET PO SCH ×2 (12:12→21:02)
[2018-02-06] MEDS: MORPHINE SULFATE 2 MG/ML 1ML SYG IVP PRN (12:13)
[2018-02-06 16:00] VITALS: BP 106/53
[2018-02-06 20:00] VITALS: BP 127/52
[2018-02-06] MEDS: INSULIN HUMULIN R 100 UNIT/ML 3ML SQ SCH (21:00)
[2018-02-06] MEDS: VANCOMYCIN 1GM+NS 250ML 250 ML IV SCH (21:02)
[2018-02-06 23:39] VITALS: BP 130/58
[2018-02-07] MEDS: MEROPENEM 500 MG VIAL IVP SCH ×4 (01:00→17:46)
[2018-02-07 04:00] VITALS: BP 126/53
[2018-02-07 04:23] LABS: ALBUMIN,BODY FLUID 0.9 g/dL
[2018-02-07] MEDS: LEVOFLOXACIN 500 MG/D5W 100 ML 100 ML IV SCH (05:44)
[2018-02-07] MEDS: METOCLOPRAMIDE 5 MG TABLET PO SCH ×4 (05:46→17:47)
[2018-02-07] MEDS: INSULIN HUMULIN R 100 UNIT/ML 3ML SQ SCH ×4 (05:50→20:38)
[2018-02-07 06:09] LABS: ALBUMIN 1.6 g/dL (3.5-5.0); BILIRUBIN,TOTAL 4.9 mg/dL (0.2-1.0); TOTAL PROTEIN, SERUM 5.2 g/dL (6.0-8.3)
[2018-02-07 06:15] LABS: APPEARANCE BODY FLUID SLIGHTLY CLOUDY (CLEAR); COLOR,BODY FLUID DARK YELLOW (LT YELLOW); SPECIMENTYPE,BODY FLUID ASCITES; TOTAL VOLUME,BODY FLUID 200 mL
[2018-02-07 06:19] LABS: BODY FLUID RBC 1425 /cu. mm.
[2018-02-07 06:21] LABS: BODY FLUID WBC 290 /cu. mm.
[2018-02-07 06:22] LABS: BF LYMPHOCYTE 91 %; BF MONOCYTE 5 %
[2018-02-07 07:00] VITALS: BP 115/53
[2018-02-07] MEDS ORDERED: HONEY 1 APPL/ML TUBE TP SCH (09:00)
[2018-02-07] MEDS: PANTOPRAZOLE SODIUM 40 MG TABLET.DR PO SCH (10:58)
[2018-02-07 11:00] VITALS: BP 120/65
[2018-02-07 15:53] VITALS: BP 109/54
[2018-02-07 19:25] VITALS: BP 127/50
[2018-02-07] MEDS: VANCOMYCIN 1GM+NS 250ML 250 ML IV SCH (20:40)
[2018-02-07] MEDS: TRAMADOL HCL 50 MG TABLET PO PRN (22:19)
[2018-02-07 23:23] VITALS: BP 121/56
[2018-02-08] MEDS: MEROPENEM 500 MG VIAL IVP SCH ×3 (00:55→17:17)
[2018-02-08 03:30] VITALS: BP 125/55
[2018-02-08] MEDS: LEVOFLOXACIN 500 MG/D5W 100 ML 100 ML IV SCH (05:59)
[2018-02-08] MEDS: METOCLOPRAMIDE 5 MG TABLET PO SCH ×3 (05:59→17:17)
[2018-02-08 06:16] LABS: HEMATOCRIT 26.6 % (42-54); MEAN CORPUSCULAR HEMOGLOBIN 31.3 pg (27.0-33.0); MEAN CORPUSCULAR HGB CONC 33.4 g/dL (32.0-36.0); MEAN CORPUSCULAR VOLUME 93.7 fL (79-99); PLATELET COUNT (AUTO) 107 K/uL (130-400); RED BLOOD CELL COUNT(AUTO) 2.84 MIL/uL (4.50-6.20); RED CELL DISTRIBUTION WIDTH 18.3 % (11.0-15.5)
[2018-02-08 06:26] LABS: CREATININE 1.5 mg/dL (0.5-1.5); POTASSIUM 3.4 mmol/L (3.5-5.1)
[2018-02-08] MEDS: INSULIN HUMULIN R 100 UNIT/ML 3ML SQ SCH ×4 (06:27→21:00)
[2018-02-08] MEDS: POTASSIUM CHLORIDE 20 MEQ ERTAB PO PRN (06:49)
[2018-02-08 07:00] VITALS: BP 115/57
[2018-02-08] MEDS: PANTOPRAZOLE SODIUM 40 MG TABLET.DR PO SCH (09:54)
[2018-02-08 11:00] VITALS: BP 125/56
[2018-02-08 16:00] VITALS: BP 105/57
[2018-02-08] MEDS: MORPHINE SULFATE 2 MG/ML 1ML SYG IVP PRN (16:24)
[2018-02-08 19:35] VITALS: BP 108/46
[2018-02-08] MEDS: VANCOMYCIN 1GM+NS 250ML 250 ML IV SCH (21:33)
[2018-02-08] MEDS: TRAMADOL HCL 50 MG TABLET PO PRN (21:33)
[2018-02-08 23:25] VITALS: BP 128/58
[2018-02-09] MEDS: MEROPENEM 500 MG VIAL IVP SCH ×3 (01:01→18:37)
[2018-02-09 03:30] VITALS: BP 113/56
[2018-02-09] MEDS: INSULIN HUMULIN R 100 UNIT/ML 3ML SQ SCH ×3 (06:08→16:30)
[2018-02-09] MEDS: METOCLOPRAMIDE 5 MG TABLET PO SCH ×3 (06:11→18:37)
[2018-02-09] MEDS: LEVOFLOXACIN 500 MG/D5W 100 ML 100 ML IV SCH (06:11)
[2018-02-09 08:00] VITALS: BP_SYST 117; BP_SYST 120; BP_DIAS 52; BP_DIAS 73
[2018-02-09] MEDS: PANTOPRAZOLE SODIUM 40 MG TABLET.DR PO SCH (09:52)
[2018-02-09 12:00] VITALS: BP 126/56
[2018-02-09] MEDS: TRAMADOL HCL 50 MG TABLET PO PRN (13:22)
[2018-02-09 16:00] VITALS: BP 116/57
== END 2018-02-09 20:10 | DRG 871 ==
LOC: EDH 16:49 → EDHIP 21:00 → 3BH 22:38 → EDHIP 22:38 → 3DH 02-03 15:03
PROVIDERS: ADMIT Internal Medicine; ATTEND Internal Medicine
PROC: BF181ZZ Fluoroscopy of Pancreatic Ducts using Low Osmolar Contrast (ICD-10-PCS; principal; 2018-02-03)
PROC: 0W993ZZ Drainage of Right Pleural Cavity, Percutaneous Approach (ICD-10-PCS; 2018-02-03)
DX: A41.9 Sepsis, unspecified organism (principal); E43 Unspecified severe protein-calorie malnutrition; N17.9 Acute kidney failure, unspecified; J90 Pleural effusion, not elsewhere classified; E11.22 Type 2 diabetes mellitus with diabetic chronic kidney disease; K83.1 Obstruction of bile duct; K31.84 Gastroparesis; E11.43 Type 2 diabetes mellitus with diabetic autonomic (poly)neuropathy; L97.429 Non-pressure chronic ulcer of left heel and midfoot with unspecified severity; E11.51 Type 2 diabetes mellitus with diabetic peripheral angiopathy without gangrene; R18.8 Other ascites; N39.0 Urinary tract infection, site not specified; J98.11 Atelectasis; M86.672 Other chronic osteomyelitis, left ankle and foot; R64 Cachexia; T81.30XA Disruption of wound, unspecified, initial encounter; T87.40 Infection of amputation stump, unspecified extremity; D64.9 Anemia, unspecified; R65.20 Severe sepsis without septic shock; B95.2 Enterococcus as the cause of diseases classified elsewhere; B96.89 Other specified bacterial agents as the cause of diseases classified elsewhere; E11.621 Type 2 diabetes mellitus with foot ulcer; E11.69 Type 2 diabetes mellitus with other specified complication; E78.5 Hyperlipidemia, unspecified; I12.9 Hypertensive chronic kidney disease with stage 1 through stage 4 chronic kidney disease, or unspecified chronic kidney disease; I25.10 Atherosclerotic heart disease of native coronary artery without angina pectoris; K74.60 Unspecified cirrhosis of liver; L60.0 Ingrowing nail; L97.529 Non-pressure chronic ulcer of other part of left foot with unspecified severity; N18.9 Chronic kidney disease, unspecified; Y83.5 Amputation of limb(s) as the cause of abnormal reaction of the patient, or of later complication, without mention of misadventure at the time of the procedure; Z68.20 Body mass index [BMI] 20.0-20.9, adult; Z74.01 Bed confinement status; Z98.61 Coronary angioplasty status; Z95.1 Presence of aortocoronary bypass graft; Z88.0 Allergy status to penicillin; Z93.3 Colostomy status; Z89.432 Acquired absence of left foot; Z85.048 Personal history of other malignant neoplasm of rectum, rectosigmoid junction, and anus; Z83.3 Family history of diabetes mellitus
CPT/HCPCS: 32555; 36415; 71045; 74177; 80048; 80053; 80076; 80202; 81001; 82042; 82247; 82550; 82553; 82945; 82948; 83605; 83615; 83735; 83874; 84100; 84157; 84484; 85025; 85027; 85610; 85730; 86316; 87040; 87071; 87088; 87106; 87186; 87205; 88108; 88305; 88341; 88342; 89051; 93005; 94640; 94664; 97039; 99291; A4218; C1894; J1956; J2185; J3370; J7030; P9046

== ENCOUNTER 2018-03-01 12:48 | Inpatient (IN) | payer OTHER ==
[~2018-03-01] VITALS: Ht 167.6 cm; Wt 62.4 kg
[2018-03-01 13:14] LABS: BILIRUBIN,URINE LARGE (NEGATIVE); GLUCOSE, URINE (UA) 250 mg/dL (NEGATIVE); KETONES,URINE 15 mg/dL (NEGATIVE); LEUKOCYTE ESTERASE ,URINE MODERATE (NEGATIVE); NITRATE,URINE POSITIVE (NEGATIVE); OCCULT BLOOD,URINE LARGE (NEGATIVE); PH,URINE 8.5 (5.0-8.0); PROTEIN,URINE >=300 (NEGATIVE)
[2018-03-01 13:16] LABS: APPEARANCE,URINE CLOUDY (CLEAR)
[2018-03-01 13:17] LABS: COLOR,URINE Red (YELLOW)
[2018-03-01 13:20] LABS: BACTERIA,URINE Moderate /HPF (None Seen); RBC,URINE TNTC /HPF (0-1); SQUAMOUS EPITHELIAL CELL,UR 0-2 /HPF (0-2); WBC,URINE 26-50 /HPF (0-1)
[2018-03-01 14:01] LABS: BASOPHILS % (AUTO) 0.1 % (0.0-5.0); CREATININE 6.2 mg/dL (0.5-1.5); HEMATOCRIT 27.5 % (42-54); LYMPHOCYTES % (AUTO) 3.7 % (21.0-51.0); MEAN CORPUSCULAR HEMOGLOBIN 29.5 pg (27.0-33.0); MEAN CORPUSCULAR HGB CONC 32.7 g/dL (32.0-36.0); MEAN CORPUSCULAR VOLUME 90.3 fL (79-99); MONOCYTES % (AUTO) 3.3 % (3.0-13.0); NEUTROPHILS % (AUTO) 92.9 % (40.0-77.0); PLATELET COUNT (AUTO) 210 K/uL (130-400); POTASSIUM 5.2 mmol/L (3.5-5.1); RED BLOOD CELL COUNT(AUTO) 3.04 MIL/uL (4.50-6.20); RED CELL DISTRIBUTION WIDTH 15.9 % (11.0-15.5); WHITE BLOOD COUNT (AUTO) 12.6 K/uL (4.8-10.8)
[2018-03-01 14:06] LABS: ALBUMIN 1.5 g/dL (3.5-5.0); BILIRUBIN,TOTAL 6.5 mg/dL (0.2-1.0)
[2018-03-01] MEDS ORDERED: CEFEPIME HCL 1 GM VIAL ONE (14:32)
[2018-03-01] MEDS ORDERED: SODIUM CHLORIDE 0.9% 1000ML 1,000 ML IV ONE ×3 (14:32→23:59)
[2018-03-01] MEDS ORDERED: SODIUM CHLORIDE 0.9% 50 ML IV ONE (14:33)
[2018-03-01 14:45] LABS: INR 1.26 (0.85-1.15); PARTIAL THROMBOPLASTIN TIME 43.9 SEC (26.3-35.5); PROTHROMBIN TIME 13.2 SEC (9.6-11.6)
[2018-03-01] MEDS ORDERED: ACETAMINOPHEN-CODEINE 300/30MG TAB ONE (15:11)
[2018-03-01] MEDS ORDERED: VANCOMYCIN 1GM+NS 250ML 250 ML IV ONE (16:00)
[2018-03-01] MEDS ORDERED: MEROPENEM 500 MG VIAL ONE (19:02)
[2018-03-01] MEDS ORDERED: SODIUM CHLORIDE 0.9% 100 ML IV ONE (19:05)
[2018-03-01] MEDS ORDERED: MORPHINE SULFATE 4 MG/1ML SYG ONE (20:38)
[2018-03-01] MEDS ORDERED: LEVOFLOXACIN 500 MG/D5W 100 ML 100 ML ONE (23:59)
[2018-03-02] VITALS (9 sets, daily range): BP systolic 92–140; BP diastolic 47–61
[2018-03-02] MEDS ORDERED: MEROPENEM 500MG+NS 50ML 50 ML IV SCH
[2018-03-02] MEDS ORDERED: DEXTROSE 50%-WATER 50 ML DISP.SYRIN IV PRN
[2018-03-02] MEDS ORDERED: GLUCAGON 1MG KIT 1 MG ML IM PRN
[2018-03-02] MEDS ORDERED: VANCOMYCIN PROTOCOL PER PHARMACY IV PRN ×2 (01:00)
[2018-03-02] MEDS: IPRATROPIUM/ALBUTEROL SULFATE 3 ML SOLUTION IH SCH ×4 (01:36→19:14)
[2018-03-02] MEDS ORDERED: MORPHINE SULFATE 4 MG/1ML SYG ONE ×2 (03:11→13:27)
[2018-03-02] MEDS ORDERED: MEROPENEM 500 MG VIAL ONE (03:45)
[2018-03-02] MEDS ORDERED: DEXTROSE 5%-WATER 500 ML IV ONE (04:03)
[2018-03-02] MEDS ORDERED: NOREPINEPHRINE BITARTRATE 1 MG/1 ML ML IV ONE (04:03)
[2018-03-02 05:36] LABS: HEMATOCRIT 22.7 % (42-54); MEAN CORPUSCULAR HEMOGLOBIN 31.8 pg (27.0-33.0); MEAN CORPUSCULAR HGB CONC 35.2 g/dL (32.0-36.0); MEAN CORPUSCULAR VOLUME 90.4 fL (79-99); NUCLEATED RED BLOOD CELLS 0.2 % (0.0-0.19); PLATELET COUNT (AUTO) 154 K/uL (130-400); RED BLOOD CELL COUNT(AUTO) 2.51 MIL/uL (4.50-6.20)
[2018-03-02 05:50] LABS: HEMOGLOBIN A1C 4.9 % (4.0-6.0)
[2018-03-02 06:00] LABS: ALBUMIN 1.3 g/dL (3.5-5.0); BILIRUBIN,TOTAL 5.6 mg/dL (0.2-1.0); CREATININE 5.9 mg/dL (0.5-1.5); POTASSIUM 5.1 mmol/L (3.5-5.1); THYROID STIMULATING HORMONE 7.79 uIU/mL (0.36-3.74); TOTAL PROTEIN, SERUM 5.2 g/dL (6.0-8.3)
[2018-03-02] MEDS ORDERED: IPRATROPIUM/ALBUTEROL SULFATE 3 ML SOLUTION IH ONE (06:44)
[2018-03-02] MEDS: INSULIN HUMULIN R 100 UNIT/ML 3ML SQ SCH ×3 (07:30→20:51)
[2018-03-02] MEDS ORDERED: MEROPENEM 500 MG VIAL IVP SCH (08:00)
[2018-03-02] MEDS ORDERED: ENOXAPARIN SODIUM 30 MG/0.3 ML SQ ONE (08:22)
[2018-03-02] MEDS ORDERED: FAMOTIDINE/PF 20 MG/2 ML VIAL IV ONE (08:22)
[2018-03-02] MEDS: FAMOTIDINE/PF 20 MG/2 ML VIAL IV SCH ×2 (08:36→20:45)
[2018-03-02] MEDS: ENOXAPARIN SODIUM 30 MG/0.3 ML SQ SCH (08:39)
[2018-03-02] MEDS ORDERED: VANCOMYCIN 1GM+NS 250ML 250 ML IV SCH (09:30)
[2018-03-02] MEDS ORDERED: SODIUM CHLORIDE 0.9% 1000ML 1,000 ML IV SCH ×3 (10:00→20:45)
[2018-03-02] MEDS ORDERED: VANCOMYCIN 1GM+NS 250ML 250 ML IV ONE (10:25)
[2018-03-02 10:53] LABS: ABG HCO3 9.1 mmol/L (21.0-28.0); ABG OXYGEN SATURATION 97.2 % (95.0-99.0); ABG PCO2 23 mmHg (35-48)
[2018-03-02] MEDS ORDERED: SODIUM BICARB [NEONATAL] 4.2% 10ML SYG ONE (11:29)
[2018-03-02] MEDS ORDERED: SODIUM BICARB 8.4% 50ML SYRINGE IVP SCH (11:30)
[2018-03-02] MEDS ORDERED: SODIUM BICARB 50MEQ 50ML VIAL ONE (11:48)
[2018-03-02] MEDS: SODIUM BICARB 8.4% 50ML SYRING 150 MEQ in DEXTROSE 5%-WATER 1,000 ML IVP SCH ×2 (12:01→19:48)
[2018-03-02] MEDS ORDERED: ONDANSETRON HCL MDV 20ML 2 MG/ML VIAL ONE (13:27)
[2018-03-02] MEDS ORDERED: SODIUM CHLORIDE 0.9% 500ML 500 ML IV ONE ×3 (16:35→17:56)
[2018-03-02] MEDS: NOREPINEPHRINE 4MG/NS 250ML 250 ML IV SCH ×2 (19:49→23:41)
[2018-03-02] MEDS ORDERED: ACETAMINOPHEN 325 MG TAB PO PRN ×2 (20:45)
[2018-03-02] MEDS ORDERED: POTASSIUM CHLORIDE 20 MEQ ERTAB PO PRN (20:45)
[2018-03-02] MEDS ORDERED: LIDOCAINE HCL-MPF 1% 2ML VIAL IJ PRN (20:45)
[2018-03-02] MEDS ORDERED: POTASSIUM CHLORIDE 10% ELIXIR 20 MEQ/15 ML UDCUP PO PRN (20:45)
[2018-03-02] MEDS ORDERED: POTASSIUM CHLORIDE 20MEQ/100ML 100 ML IV PRN (20:45)
[2018-03-02] MEDS ORDERED: SODIUM CHLORIDE 0.9% 500ML 500 ML IV PRN (20:45)
[2018-03-02] MEDS: LEVOFLOXACIN 500 MG/D5W 100 ML 100 ML IV SCH ×2 (23:27)
[2018-03-03] VITALS (24 sets, daily range): BP systolic 84–129; BP diastolic 45–83
[2018-03-03] MEDS: IPRATROPIUM/ALBUTEROL SULFATE 3 ML SOLUTION IH SCH ×5 (00:19→23:08)
[2018-03-03] MEDS: NOREPINEPHRINE 4MG/NS 250ML 250 ML IV SCH ×4 (02:57→21:01)
[2018-03-03 03:53] LABS: HEMATOCRIT 24.4 % (42-54); MEAN CORPUSCULAR HEMOGLOBIN 29.7 pg (27.0-33.0); MEAN CORPUSCULAR HGB CONC 33.9 g/dL (32.0-36.0); MEAN CORPUSCULAR VOLUME 87.6 fL (79-99); NUCLEATED RED BLOOD CELLS 0.1 % (0.0-0.19); PLATELET COUNT (AUTO) 172 K/uL (130-400); RED BLOOD CELL COUNT(AUTO) 2.78 MIL/uL (4.50-6.20); RED CELL DISTRIBUTION WIDTH 16.1 % (11.0-15.5); WHITE BLOOD COUNT (AUTO) 13.2 K/uL (4.8-10.8)
[2018-03-03 04:01] LABS: INR 1.39 (0.85-1.15); PROTHROMBIN TIME 14.5 SEC (9.6-11.6)
[2018-03-03 04:04] LABS: ALBUMIN 1.2 g/dL (3.5-5.0); BILIRUBIN,TOTAL 5.4 mg/dL (0.2-1.0); CREATININE 5.3 mg/dL (0.5-1.5); MAGNESIUM 1.5 mg/dL (1.80-2.40); PHOSPHORUS 4.5 mg/dL (2.5-4.9); POTASSIUM 4.1 mmol/L (3.5-5.1); TOTAL PROTEIN, SERUM 5.1 g/dL (6.0-8.3)
[2018-03-03 04:24] LABS: BAND NEUTROPHILS % (MANUAL) 7 % (0-2); LYMPHOCYTES % (MANUAL) 6 % (22-44); MAN.DIFF COMMENT-IMPRESSION MANUAL DIFFERENTIAL; MONOCYTES % (MANUAL) 1 % (2-9); PLATELET MORPHOLOGY COMMENT ADEQUATE; SEGMENTED NEUTROPHILS % 86 % (40-70)
[2018-03-03] MEDS: INSULIN HUMULIN R 100 UNIT/ML 3ML SQ SCH ×4 (05:56→20:56)
[2018-03-03] MEDS ORDERED: MAGNESIUM 2GM PREMIX 50ML 50 ML IV PRN (08:15)
[2018-03-03] MEDS: FAMOTIDINE/PF 20 MG/2 ML VIAL IV SCH ×2 (08:40→20:57)
[2018-03-03] MEDS: ENOXAPARIN SODIUM 30 MG/0.3 ML SQ SCH (08:41)
[2018-03-03] MEDS ORDERED: MEROPENEM 500 MG VIAL IVP SCH (09:00)
[2018-03-03] MEDS: SODIUM BICARB 8.4% 50ML SYRING 150 MEQ in DEXTROSE 5%-WATER 1,000 ML IVP SCH ×2 (11:42→20:58)
[2018-03-03] MEDS: MIDODRINE HCL 5 MG TABLET PO SCH ×3 (13:17→20:57)
[2018-03-03] MEDS ORDERED: ALBUMIN (HUMAN) 25% 100 ML IV SCH (14:45)
[2018-03-03] MEDS ORDERED: ALBUMIN (HUMAN) 25% 50 ML IV SCH (15:00)
[2018-03-03] MEDS: LACTULOSE 20 GM/30 ML UDCUP PO SCH (20:57)
[2018-03-03] MEDS: MORPHINE SULFATE 4 MG/1ML SYG IVP PRN (21:13)
[2018-03-03] MEDS ORDERED: METO5 PO (22:15)
[2018-03-03] MEDS ORDERED: TYL3 PO (22:15)
[2018-03-03] MEDS ORDERED: PANT40TA25 PO (22:15)
[2018-03-04] VITALS (26 sets, daily range): BP systolic 93–124; BP diastolic 40–69
[2018-03-04] MEDS: ACETAMINOPHEN 325 MG TAB PO PRN ×2 (00:22→20:43)
[2018-03-04] MEDS: LEVOFLOXACIN 500 MG/D5W 100 ML 100 ML IV SCH (00:22)
[2018-03-04] MEDS: ALBUMIN (HUMAN) 25% 100 ML IV SCH ×2 (03:51→13:49)
[2018-03-04 04:07] LABS: BASOPHILS % (AUTO) 0.3 % (0.0-5.0); EOSINOPHILS % (AUTO) 0.7 % (0.0-8.0); LYMPHOCYTES % (AUTO) 2.4 % (21.0-51.0); MEAN CORPUSCULAR HEMOGLOBIN 30.1 pg (27.0-33.0); MEAN CORPUSCULAR VOLUME 88.4 fL (79-99); MONOCYTES % (AUTO) 3.9 % (3.0-13.0); NEUTROPHILS % (AUTO) 92.7 % (40.0-77.0); NUCLEATED RED BLOOD CELLS 0.1 % (0.0-0.19); PLATELET COUNT (AUTO) 116 K/uL (130-400); RED BLOOD CELL COUNT(AUTO) 2.71 MIL/uL (4.50-6.20); RED CELL DISTRIBUTION WIDTH 16.3 % (11.0-15.5); WHITE BLOOD COUNT (AUTO) 8.8 K/uL (4.8-10.8)
[2018-03-04 04:31] LABS: ALBUMIN 1.3 g/dL (3.5-5.0); BILIRUBIN,TOTAL 5.3 mg/dL (0.2-1.0); CREATININE 4.9 mg/dL (0.5-1.5); MAGNESIUM 1.8 mg/dL (1.80-2.40); PHOSPHORUS 4.5 mg/dL (2.5-4.9); POTASSIUM 3.8 mmol/L (3.5-5.1); TOTAL PROTEIN, SERUM 4.7 g/dL (6.0-8.3)
[2018-03-04] MEDS: NOREPINEPHRINE 4MG/NS 250ML 250 ML IV SCH ×2 (05:06→20:37)
[2018-03-04] MEDS: INSULIN HUMULIN R 100 UNIT/ML 3ML SQ SCH ×4 (06:05→20:45)
[2018-03-04] MEDS: IPRATROPIUM/ALBUTEROL SULFATE 3 ML SOLUTION IH SCH ×3 (06:35→18:35)
[2018-03-04] MEDS: FAMOTIDINE/PF 20 MG/2 ML VIAL IV SCH ×2 (08:55→20:34)
[2018-03-04] MEDS: MEROPENEM 500 MG VIAL IVP SCH (08:55)
[2018-03-04] MEDS ORDERED: MEROPENEM 500MG+NS 50ML 50 ML IV SCH (09:00)
[2018-03-04] MEDS: NYSTATIN 100000 UNIT/ML 5ML UDCUP PO SCH ×4 (09:00→20:33)
[2018-03-04] MEDS: MIDODRINE HCL 5 MG TABLET PO SCH ×3 (09:00→20:33)
[2018-03-04] MEDS: LACTULOSE 20 GM/30 ML UDCUP PO SCH ×2 (09:00→20:34)
[2018-03-04] MEDS: ENOXAPARIN SODIUM 30 MG/0.3 ML SQ SCH (09:04)
[2018-03-04] MEDS: ONDANSETRON HCL MDV 20ML 2 MG/ML VIAL IVP PRN (09:11)
[2018-03-04] MEDS: SODIUM BICARB 8.4% 50ML SYRING 150 MEQ in DEXTROSE 5%-WATER 1,000 ML IVP SCH (10:27)
[2018-03-04] MEDS ORDERED: PHARMACY COMMUNICATION MISC SCH (13:00)
[2018-03-04] MEDS ORDERED: FLUCONAZOLE IV SCH (13:15)
[2018-03-04] MEDS ORDERED: SODIUM CHLORIDE IV SCH (13:15)
[2018-03-04] MEDS ORDERED: LACTATED RINGERS 1000ML IV SCH (13:15)
[2018-03-04] MEDS ORDERED: COMPOUND IV MISC 1 EACH IVSOLN MISC PRN (13:15)
[2018-03-04] MEDS: FLUCONAZOLE 400 MG/NS 200 ML 200 ML IV SCH (15:49)
[2018-03-05] VITALS (31 sets, daily range): BP systolic 83–122; BP diastolic 39–66
[2018-03-05] MEDS: LEVOFLOXACIN 500 MG/D5W 100 ML 100 ML IV SCH ×2 (00:02→22:49)
[2018-03-05] MEDS: IPRATROPIUM/ALBUTEROL SULFATE 3 ML SOLUTION IH SCH ×5 (00:17→23:50)
[2018-03-05] MEDS: SODIUM BICARB 8.4% 50ML SYRING 150 MEQ in DEXTROSE 5%-WATER 1,000 ML IVP SCH (00:28)
[2018-03-05] MEDS: ALBUMIN (HUMAN) 25% 100 ML IV SCH (02:59)
[2018-03-05] MEDS: MORPHINE SULFATE 4 MG/1ML SYG IVP PRN (03:33)
[2018-03-05 03:53] LABS: HEMATOCRIT 22.4 % (42-54); MEAN CORPUSCULAR HEMOGLOBIN 30.3 pg (27.0-33.0); MEAN CORPUSCULAR HGB CONC 34.3 g/dL (32.0-36.0); MEAN CORPUSCULAR VOLUME 88.2 fL (79-99); NUCLEATED RED BLOOD CELLS 0.1 % (0.0-0.19); PLATELET COUNT (AUTO) 84 K/uL (130-400); RED BLOOD CELL COUNT(AUTO) 2.54 MIL/uL (4.50-6.20); RED CELL DISTRIBUTION WIDTH 16.4 % (11.0-15.5); WHITE BLOOD COUNT (AUTO) 9.2 K/uL (4.8-10.8)
[2018-03-05 04:10] LABS: ALBUMIN 1.7 g/dL (3.5-5.0); CREATININE 4.5 mg/dL (0.5-1.5); POTASSIUM 3.5 mmol/L (3.5-5.1); TOTAL PROTEIN, SERUM 4.4 g/dL (6.0-8.3)
[2018-03-05] MEDS: INSULIN HUMULIN R 100 UNIT/ML 3ML SQ SCH ×4 (06:23→21:00)
[2018-03-05] MEDS: SODIUM CHLORIDE 0.9% 1000ML 1,000 ML IV SCH ×2 (09:27→22:08)
[2018-03-05] MEDS: FLUCONAZOLE 400 MG/NS 200 ML 200 ML IV SCH (09:27)
[2018-03-05] MEDS: MEROPENEM 500 MG VIAL IVP SCH (09:27)
[2018-03-05] MEDS: MIDODRINE HCL 5 MG TABLET PO SCH ×3 (09:27→21:37)
[2018-03-05] MEDS: NYSTATIN 100000 UNIT/ML 5ML UDCUP PO SCH ×4 (09:27→21:37)
[2018-03-05] MEDS: FAMOTIDINE/PF 20 MG/2 ML VIAL IV SCH (09:27)
[2018-03-05] MEDS: LACTULOSE 20 GM/30 ML UDCUP PO SCH ×2 (09:27→21:37)
[2018-03-05] MEDS: ONDANSETRON HCL MDV 20ML 2 MG/ML VIAL IVP PRN (09:58)
[2018-03-05] MEDS: ACETAMINOPHEN 325 MG TAB PO PRN ×2 (16:00→23:28)
[2018-03-05] MEDS ORDERED: HALOPERIDOL 1 MG TABLET PO PRN (18:00)
[2018-03-06] VITALS (24 sets, daily range): BP systolic 76–120; BP diastolic 31–76
[2018-03-06] MEDS: INSULIN HUMULIN R 100 UNIT/ML 3ML SQ SCH ×4 (05:24→20:20)
[2018-03-06 05:28] LABS: HEMATOCRIT 23.8 % (42-54); MEAN CORPUSCULAR HEMOGLOBIN 29.6 pg (27.0-33.0); MEAN CORPUSCULAR HGB CONC 32.8 g/dL (32.0-36.0); MEAN CORPUSCULAR VOLUME 90.2 fL (79-99); NUCLEATED RED BLOOD CELLS 0.2 % (0.0-0.19); PLATELET COUNT (AUTO) 49 K/uL (130-400); RED BLOOD CELL COUNT(AUTO) 2.64 MIL/uL (4.50-6.20); RED CELL DISTRIBUTION WIDTH 16.7 % (11.0-15.5); WHITE BLOOD COUNT (AUTO) 8.6 K/uL (4.8-10.8)
[2018-03-06 05:59] LABS: ALBUMIN 1.8 g/dL (3.5-5.0); BILIRUBIN,TOTAL 5.2 mg/dL (0.2-1.0); CREATININE 4.6 mg/dL (0.5-1.5); MAGNESIUM 1.7 mg/dL (1.80-2.40); PHOSPHORUS 4.7 mg/dL (2.5-4.9); POTASSIUM 3.7 mmol/L (3.5-5.1); TOTAL PROTEIN, SERUM 4.4 g/dL (6.0-8.3)
[2018-03-06] MEDS: IPRATROPIUM/ALBUTEROL SULFATE 3 ML SOLUTION IH SCH ×3 (06:00→19:59)
[2018-03-06 07:23] LABS: ABG BASE EXCESS -8.2 mmol/L (-2.0-3.0); ABG HCO3 15.7 mmol/L (21.0-28.0); ABG OXYGEN SATURATION 88.5 % (95.0-99.0); ABG PCO2 29 mmHg (35-48)
[2018-03-06] MEDS: LACTULOSE 20 GM/30 ML UDCUP PO SCH ×2 (09:00→21:12)
[2018-03-06] MEDS: MEROPENEM 500 MG VIAL IVP SCH (09:03)
[2018-03-06] MEDS: SODIUM BICARBONATE 650 MG TAB PO SCH ×2 (09:04→21:12)
[2018-03-06] MEDS: MIDODRINE HCL 5 MG TABLET PO SCH ×3 (09:04→21:13)
[2018-03-06] MEDS: PANTOPRAZOLE SODIUM 40 MG TABLET.DR PO SCH (09:04)
[2018-03-06] MEDS: NYSTATIN 100000 UNIT/ML 5ML UDCUP PO SCH ×4 (09:04→21:12)
[2018-03-06] MEDS: MORPHINE SULFATE 4 MG/1ML SYG IVP PRN ×2 (09:06→17:40)
[2018-03-06] MEDS: FLUCONAZOLE 400 MG/NS 200 ML 200 ML IV SCH (10:16)
[2018-03-06] MEDS: SODIUM BICARB 8.4% 50ML SYRING 150 MEQ in DEXTROSE 5%-WATER 1,000 ML IV SCH (12:12)
[2018-03-06] MEDS: TRAMADOL HCL 50 MG TABLET PO PRN (21:39)
[2018-03-07] VITALS (21 sets, daily range): BP systolic 86–122; BP diastolic 39–74
[2018-03-07] MEDS: LEVOFLOXACIN 500 MG/D5W 100 ML 100 ML IV SCH ×2 (00:10→23:56)
[2018-03-07] MEDS: IPRATROPIUM/ALBUTEROL SULFATE 3 ML SOLUTION IH SCH ×5 (00:21→23:19)
[2018-03-07] MEDS: SODIUM BICARB 8.4% 50ML SYRING 150 MEQ in DEXTROSE 5%-WATER 1,000 ML IV SCH ×2 (02:53→18:50)
[2018-03-07] MEDS: TRAMADOL HCL 50 MG TABLET PO PRN ×2 (02:53→16:22)
[2018-03-07 05:50] LABS: HEMATOCRIT 21.2 % (42-54); MEAN CORPUSCULAR HEMOGLOBIN 31.8 pg (27.0-33.0); MEAN CORPUSCULAR HGB CONC 35.7 g/dL (32.0-36.0); NUCLEATED RED BLOOD CELLS 0.2 % (0.0-0.19); PLATELET COUNT (AUTO) 36 K/uL (130-400); RED BLOOD CELL COUNT(AUTO) 2.39 MIL/uL (4.50-6.20); RED CELL DISTRIBUTION WIDTH 16.2 % (11.0-15.5); WHITE BLOOD COUNT (AUTO) 7.2 K/uL (4.8-10.8)
[2018-03-07 05:57] LABS: CREATININE 4.7 mg/dL (0.5-1.5); POTASSIUM 3.2 mmol/L (3.5-5.1)
[2018-03-07] MEDS: INSULIN HUMULIN R 100 UNIT/ML 3ML SQ SCH ×4 (07:14→22:24)
[2018-03-07] MEDS ORDERED: LIDOCAINE HCL 2% VISCOUS 30 ML, MAG HYDROX/AL HYDROX/SIMETH 30 ML, BELLADONNA-PHENOBARB... PO PRN ×3 (07:45)
[2018-03-07] MEDS ORDERED: COMPOUND PO MISCELLANEOUS 1 EACH MISC MISC PRN (08:00)
[2018-03-07] MEDS ORDERED: LIDOCAINE HCL 2% VISCOUS 30 ML, MAG HYDROX/AL HYDROX/SIMETH 30 ML, DICYCLOMINE HCL 20 MG PO PRN ×3 (08:00)
[2018-03-07] MEDS: MEROPENEM 500 MG VIAL IVP SCH (08:18)
[2018-03-07] MEDS: LACTULOSE 20 GM/30 ML UDCUP PO SCH ×2 (08:19→22:21)
[2018-03-07] MEDS: NYSTATIN 100000 UNIT/ML 5ML UDCUP PO SCH ×4 (08:19→22:19)
[2018-03-07] MEDS: MIDODRINE HCL 5 MG TABLET PO SCH ×3 (08:19→22:21)
[2018-03-07] MEDS: SODIUM BICARBONATE 650 MG TAB PO SCH ×2 (08:20→22:21)
[2018-03-07] MEDS: PANTOPRAZOLE SODIUM 40 MG TABLET.DR PO SCH (08:20)
[2018-03-07] MEDS: SIMETHICONE 80 MG TAB.CHEW PO SCH ×4 (08:23→22:20)
[2018-03-07] MEDS: ONDANSETRON HCL MDV 20ML 2 MG/ML VIAL IVP PRN (09:24)
[2018-03-07] MEDS: FLUCONAZOLE 400 MG/NS 200 ML 200 ML IV SCH (09:36)
[2018-03-07] MEDS: METOCLOPRAMIDE 5 MG TABLET PO SCH ×3 (11:32→22:21)
[2018-03-08 01:18] VITALS: BP 116/61
[2018-03-08 03:55] VITALS: BP 90/50
[2018-03-08] MEDS: ONDANSETRON HCL MDV 20ML 2 MG/ML VIAL IVP PRN (04:11)
[2018-03-08 05:12] LABS: MEAN CORPUSCULAR HEMOGLOBIN 29.8 pg (27.0-33.0); MEAN CORPUSCULAR HGB CONC 33.5 g/dL (32.0-36.0); MEAN CORPUSCULAR VOLUME 89.2 fL (79-99); NUCLEATED RED BLOOD CELLS 0.3 % (0.0-0.19); PLATELET COUNT (AUTO) 22 K/uL (130-400); RED BLOOD CELL COUNT(AUTO) 2.58 MIL/uL (4.50-6.20); RED CELL DISTRIBUTION WIDTH 16.4 % (11.0-15.5); WHITE BLOOD COUNT (AUTO) 7.8 K/uL (4.8-10.8)
[2018-03-08 05:18] LABS: CREATININE 4.9 mg/dL (0.5-1.5); POTASSIUM 3.1 mmol/L (3.5-5.1)
[2018-03-08] MEDS: IPRATROPIUM/ALBUTEROL SULFATE 3 ML SOLUTION IH SCH ×4 (06:07→23:23)
[2018-03-08] MEDS: METOCLOPRAMIDE 5 MG TABLET PO SCH ×4 (06:52→22:07)
[2018-03-08] MEDS: INSULIN HUMULIN R 100 UNIT/ML 3ML SQ SCH ×4 (06:53→21:00)
[2018-03-08 07:48] VITALS: BP 101/48
[2018-03-08] MEDS: SODIUM BICARBONATE 650 MG TAB PO SCH ×2 (10:18→22:11)
[2018-03-08] MEDS: FLUCONAZOLE 400 MG/NS 200 ML 200 ML IV SCH (10:18)
[2018-03-08] MEDS: MIDODRINE HCL 5 MG TABLET PO SCH ×3 (10:18→22:05)
[2018-03-08] MEDS: PANTOPRAZOLE SODIUM 40 MG TABLET.DR PO SCH (10:19)
[2018-03-08] MEDS: SIMETHICONE 80 MG TAB.CHEW PO SCH ×4 (10:19→22:07)
[2018-03-08] MEDS: NYSTATIN 100000 UNIT/ML 5ML UDCUP PO SCH ×4 (10:20→22:04)
[2018-03-08] MEDS: LACTULOSE 20 GM/30 ML UDCUP PO SCH ×2 (10:20→22:04)
[2018-03-08] MEDS: MEROPENEM 500 MG VIAL IVP SCH (10:20)
[2018-03-08] MEDS: SODIUM BICARB 8.4% 50ML SYRING 150 MEQ in DEXTROSE 5%-WATER 1,000 ML IV SCH (10:41)
[2018-03-08] MEDS: TRAMADOL HCL 50 MG TABLET PO PRN ×2 (10:55→21:44)
[2018-03-08 11:28] VITALS: BP 109/47
[2018-03-08 16:27] VITALS: BP 105/50
[2018-03-08 20:05] VITALS: BP 97/47
[2018-03-09] VITALS: BP 98/44
[2018-03-09] MEDS: LEVOFLOXACIN 500 MG/D5W 100 ML 100 ML IV SCH (00:09)
[2018-03-09] MEDS: SODIUM BICARB 8.4% 50ML SYRING 150 MEQ in DEXTROSE 5%-WATER 1,000 ML IV SCH (01:13)
[2018-03-09] MEDS: TRAMADOL HCL 50 MG TABLET PO PRN (01:22)
[2018-03-09 03:29] VITALS: BP 83/44
[2018-03-09 04:43] LABS: HEMATOCRIT 22.2 % (42-54); MEAN CORPUSCULAR VOLUME 88.6 fL (79-99); NUCLEATED RED BLOOD CELLS 0.5 % (0.0-0.19); PLATELET COUNT (AUTO) 13 K/uL (130-400); RED CELL DISTRIBUTION WIDTH 16.4 % (11.0-15.5); WHITE BLOOD COUNT (AUTO) 7.6 K/uL (4.8-10.8)
[2018-03-09] MEDS: IPRATROPIUM/ALBUTEROL SULFATE 3 ML SOLUTION IH SCH (06:45)
[2018-03-09 07:00] VITALS: BP 91/40
[2018-03-09] MEDS ORDERED: MORPHINE SULFATE 2 MG/ML 1ML SYG IVP PRN (08:15)
[2018-03-09] MEDS ORDERED: MORPHINE SULFATE 4 MG/1ML SYG IVP PRN ×2 (08:30→12:42)
[2018-03-09 11:00] VITALS: BP 100/48
[2018-03-09] MEDS ORDERED: IPRATROPIUM/ALBUTEROL SULFATE 3 ML SOLUTION IH SCH (12:00)
== END 2018-03-09 14:52 | disposition hospice, home (50) | DRG 871 ==
LOC: EDH 12:48 → EDHIP 16:40 → OBSVTOIN 16:40 → 3DH 23:31 → EDHIP 23:43 → 2CH 03-02 18:39 → 2DH 03-07 18:58
PROVIDERS: ADMIT Internal Medicine; ATTEND Internal Medicine
PROC: 0JH63XZ Insertion of Tunneled Vascular Access Device into Chest Subcutaneous Tissue and Fascia, Percutaneous Approach (ICD-10-PCS; principal; 2018-03-02)
PROC: 05HM33Z Insertion of Infusion Device into Right Internal Jugular Vein, Percutaneous Approach (ICD-10-PCS; 2018-03-02)
PROC: B543ZZA Ultrasonography of Right Jugular Veins, Guidance (ICD-10-PCS; 2018-03-02)
PROC: 02HV33Z Insertion of Infusion Device into Superior Vena Cava, Percutaneous Approach (ICD-10-PCS; 2018-03-02)
PROC: 0HBRXZZ Excision of Toe Nail, External Approach (ICD-10-PCS; 2018-03-02)
DX: A41.9 Sepsis, unspecified organism (principal); E43 Unspecified severe protein-calorie malnutrition; J96.20 Acute and chronic respiratory failure, unspecified whether with hypoxia or hypercapnia; N17.0 Acute kidney failure with tubular necrosis; R65.21 Severe sepsis with septic shock; D69.6 Thrombocytopenia, unspecified; E11.21 Type 2 diabetes mellitus with diabetic nephropathy; J18.9 Pneumonia, unspecified organism; K83.0 Cholangitis; N18.4 Chronic kidney disease, stage 4 (severe); N17.9 Acute kidney failure, unspecified; E87.2 Acidosis; E87.1 Hypo-osmolality and hyponatremia; L97.409 Non-pressure chronic ulcer of unspecified heel and midfoot with unspecified severity; M86.9 Osteomyelitis, unspecified; N30.00 Acute cystitis without hematuria; R64 Cachexia; L97.429 Non-pressure chronic ulcer of left heel and midfoot with unspecified severity; M86.671 Other chronic osteomyelitis, right ankle and foot; M86.672 Other chronic osteomyelitis, left ankle and foot; E11.51 Type 2 diabetes mellitus with diabetic peripheral angiopathy without gangrene; E11.22 Type 2 diabetes mellitus with diabetic chronic kidney disease; D64.9 Anemia, unspecified; B37.9 Candidiasis, unspecified; B95.2 Enterococcus as the cause of diseases classified elsewhere; E11.621 Type 2 diabetes mellitus with foot ulcer; E11.622 Type 2 diabetes mellitus with other skin ulcer; E11.69 Type 2 diabetes mellitus with other specified complication; E78.5 Hyperlipidemia, unspecified; E87.6 Hypokalemia; I12.9 Hypertensive chronic kidney disease with stage 1 through stage 4 chronic kidney disease, or unspecified chronic kidney disease; I25.10 Atherosclerotic heart disease of native coronary artery without angina pectoris; K72.90 Hepatic failure, unspecified without coma; K81.9 Cholecystitis, unspecified; K86.89 Other specified diseases of pancreas; L60.0 Ingrowing nail; L97.519 Non-pressure chronic ulcer of other part of right foot with unspecified severity; L97.529 Non-pressure chronic ulcer of other part of left foot with unspecified severity; R13.10 Dysphagia, unspecified; Y95 Nosocomial condition; Z66 Do not resuscitate; Z74.01 Bed confinement status; Z95.1 Presence of aortocoronary bypass graft; Z93.3 Colostomy status; Z89.439 Acquired absence of unspecified foot; Z88.0 Allergy status to penicillin; Z89.412 Acquired absence of left great toe; Z89.411 Acquired absence of right great toe; Z87.440 Personal history of urinary (tract) infections; Z68.22 Body mass index [BMI] 22.0-22.9, adult; Z85.118 Personal history of other malignant neoplasm of bronchus and lung; Z85.038 Personal history of other malignant neoplasm of large intestine; Z83.3 Family history of diabetes mellitus
CPT/HCPCS: 36415; 36600; 71045; 71250; 74018; 74176; 74230; 76770; 80048; 80053; 81001; 82140; 82330; 82435; 82803; 82947; 82948; 83036; 83605; 83735; 83935; 84100; 84132; 84295; 84300; 84443; 84484; 85018; 85025; 85027; 85610; 85730; 87040; 87071; 87076; 87077; 87088; 87106; 87186; 87205; 92610; 92611; 94640; 94664; 97039; A4218; G0378; J0692; J1450; J1650; J1815; J1956; J2185; J2270; J3370; J3475; J3480; J3490; J7030; J7040; J7060; J7070; J7120; P9046; P9047